=== PATIENT | male | born 1960 | race Two or more races ===

== ENCOUNTER 2016-12-16 18:32 | Emergency (ER) | payer OTHER ==
[2016-12-16 18:39] VITALS: O2SAT 94
[2016-12-16] MEDS ORDERED: TDAP ADULT 0.5 ML INJ (BOOSTRIX) IM ONE (19:30)
--- NOTE | 2016-12-16 19:34 | EDPHY ---
H & P Stated Complaint: bit by neighbors dog on r hand and forearm Time Seen by Provider: 12/16/16 19:23 HPI/ROS: CHIEF COMPLAINT: Dog bite HISTORY OF PRESENT ILLNESS: The patient is a 56-year-old man who comes to the emergency department complaining of a dog bite to his right hand and forearm. He has 2 small puncture wounds to his hand into to the forearm. He denies other injuries. He has normal range of motion and sensation. Normal pulses and capillary refill. REVIEW OF SYSTEMS: Constitutional: denies: chills, fever, recent illness, recent injury EENTM: denies: blurred vision, double vision, nose congestion Respiratory: denies: cough, shortness of breath Cardiac: denies: chest pain, irregular heart rate, lightheadedness, palpitations Gastrointestinal/Abdominal: denies: abdominal pain, diarrhea, nausea, vomiting, blood streaked stools Genitourinary: denies: dysuria, frequency, hematuria, pain Musculoskeletal: See HPI Skin: denies: lesions, rash, jaundice, bruising Neurological: denies: headache, numbness, paresthesia, tingling, dizziness, weakness Hematologic/Lymphatic: denies: blood clots, easy bleeding, easy bruising Immunologic/allergic: denies: HIV/AIDS, transplant EXAM: GENERAL: Well-appearing, well-nourished and in no acute distress. HEAD: Atraumatic, normocephalic. EYES: Pupils equal round and reactive to light, extraocular movements intact, sclera anicteric, conjunctiva are normal. ENT: TMs normal, nares patent, oropharynx clear without exudates. Moist mucous membranes. NECK: Normal range of motion, supple without lymphadenopathy or JVD. LUNGS: Breath sounds clear to auscultation bilaterally and equal. No wheezes rales or rhonchi. HEART: Regular rate and rhythm without murmurs, rubs or gallops. ABDOMEN: Soft, nontender, normoactive bowel sounds. No guarding, no rebound. No masses appreciated. BACK: No CVA tenderness, no spinal tenderness, step-offs or deformities EXTREMITIES: See diagram NEUROLOGICAL: Cranial nerves II through XII grossly intact. Normal speech, normal gait. 5/5 strength, normal movement in all extremities, normal sensation PSYCH: Normal mood, normal affect. SKIN: Warm, dry, normal turgor, no visible rashes or lesions. Source: Patient Exam Limitations: No limitations - Personal History Current Tetanus/Diphtheria Vaccine: Yes - Medical/Surgical History Hx Asthma: No Hx Chronic Respiratory Disease: No Hx Diabetes: No Hx Cardiac Disease: No Hx Renal Disease: No Hx Cirrhosis: No Hx Alcoholism: No Hx HIV/AIDS: No Hx Splenectomy or Spleen Trauma: No Other PMH: bilat hip replacements - Family History Significant Family History: No pertinent family hx - Social History Smoking Status: Former smoker Alcohol Use: Sober Drug Use: None Constitutional: Initial Vital Signs Temperature (C) 37 C 12/16/16 18:37 Heart Rate 78 12/16/16 18:37 Respiratory Rate 17 12/16/16 18:37 Blood Pressure 113/73 12/16/16 18:37 O2 Sat (%) 94 12/16/16 18:37 O2 Delivery Mode Room Air Allergies/Adverse Reactions: No Known Allergies Allergy (Unverified 12/16/16 18:36) Home Medications: Medication Instructions Recorded Amoxicillin/Clavulanate Pot 875 mg PO BID #14 tab 12/16/16 [Augmentin 875Mg] Valproic Acid 12/16/16 ED Images - Extremities Full Arm Back Right: 1 - 2 small puncture wounds very superficial 2 - Single puncture/laceration approximately 1 cm. No foreign body. Normal range of motion and sensation distally. Normal pulses 3 - Small abrasion/puncture. Superficial Medical Decision Making ED Course/Re-evaluation: The patient has superficial wounds other than the puncture wound near his thumb. They are all cleaned and dressed with antibiotics. Tetanus vaccine updated. please for notified. The dog is up-to-date on his vaccinations. This was a neighbors PET. Patient understands and agrees with this plan. Differential Diagnosis: Partial list of the Differential diagnosis considered include but were not limited to; dog bite, foreign body, puncture wound and although unlikely based on the history and physical exam, I also considered infection, tendon injury, nerve injury, vascular injury. I discussed these differential diagnoses and the plan with the patient as well as the usual and expected course. The patient understands that the diagnosis is provisional and that in medicine we are not always correct and that further workup is often warranted. Usual and customary warnings were given. All of the patient's questions were answered. The patient was instructed to return to the emergency department should the symptoms at all worsen or return, otherwise to followup with the physician as we discussed. - Data Points Medications Given: Discontinued Medications Amoxicillin/Clavulanate Potassium (Augmentin 875mg) 875 mg PO EDNOW ONE PRN Reason: Protocol Stop: 12/16/16 19:36 Last Admin: 12/16/16 20:28 Dose: 875 mg Diphtheria/Tetanus/Acell Pertussis (Boostrix) 0.5 ml IM .ONCE ONE Stop: 12/16/16 19:31 Last Admin: 12/16/16 20:25 Dose: 0.5 ml Departure - Departure Disposition: Home, Routine, Self-Care Clinical Impression: Dog bite Qualifiers: Encounter type: initial encounter Qualified Code(s): W54.0XXA - Bitten by dog, initial encounter Condition: Fair Instructions: Animal Bite (ED) Referrals: Margret Farr [Primary Care Provider] - As per Instructions Prescriptions: Amoxicillin/Clavulanate Pot [Augmentin 875Mg] 875 mg PO BID #14 tab
[2016-12-16] MEDS ORDERED: AMOXICILLIN/CLAVULANATE POT 875/125 MG TAB PO ONE ×2 (19:35→20:27)
[2016-12-16 20:31] VITALS: BP 120/74; PULSE 80; RESP 14; TEMP 98.4
== END 2016-12-16 20:30 | disposition home or self-care (01) ==
DX: S61.451A Open bite of right hand, initial encounter (principal); S51.851A Open bite of right forearm, initial encounter; Z23 Encounter for immunization; Z87.891 Personal history of nicotine dependence; W54.0XXA Bitten by dog, initial encounter; Y92.89 Other specified places as the place of occurrence of the external cause

== ENCOUNTER 2016-12-17 22:44 | Emergency (ER) | payer OTHER ==
[2016-12-17 23:02] VITALS: O2SAT 92
[2016-12-18] MEDS ORDERED: CLINDAMYCIN 900 MG/DEXTROSE 50 ML IV ONE (00:21)
--- NOTE | 2016-12-18 00:26 | EDPHY ---
H & P Smoking Status: Former smoker Time Seen by Provider: 12/18/16 00:14 HPI/ROS: CHIEF COMPLAINT: Hand infection HISTORY OF PRESENT ILLNESS: This is a 56-year-old male patient presenting to the emergency department complaining of increase redness to dog bite. Patient was seen on 12/16/16 for dog bite, wounds were clean placed on Augmentin and tetanus given. Patient states he noticed today after taking off the initial dressing had increase in redness to right hand with some redness to right wrist , mild pain with range of motion. No fever chills nausea vomiting REVIEW OF SYSTEMS: Constitutional: No fever, no chills. Eyes: No discharge. No blurred vision ENT: No sore throat. Cardiovascular: No chest pain, no palpitations. Respiratory: No cough, no shortness of breath. Gastrointestinal: No abdominal pain, no vomiting. Genitourinary: No difficulty urinating Musculoskeletal: No back pain. Right hand pain Skin: No rashes. Redness to right hand at dog bite Neurological: No headache. (Amalia Erickson) Physical Exam: General Appearance: Alert, no distress. Eyes: Pupils equal and round no pallor or injection. ENT, Mouth: Mucous membranes moist. Respiratory: There are no retractions, lungs are clear to auscultation. Cardiovascular: Regular rate and rhythm. Gastrointestinal: Abdomen is soft and nontender, no masses, bowel sounds normal. Neurological: No focal deficits Skin: Warm and dry, no rashes. Musculoskeletal: Neck is supple nontender. Right hand redness swelling no drainage full range of motion Extremities: Right hand redness with swelling redness extending to wrist, no drainage noted. full range of motion. Psychiatric: Patient is oriented X 3, acting appropriate (Amalia Erickson) Constitutional: Initial Vital Signs Temperature (C) 36.9 C 12/17/16 23:00 Heart Rate 84 12/17/16 23:00 Respiratory Rate 16 12/17/16 23:00 Blood Pressure 127/81 H 12/17/16 23:00 O2 Sat (%) 92 12/17/16 23:00 O2 Delivery Mode Room Air Allergies/Adverse Reactions: No Known Allergies Allergy (Unverified 12/17/16 22:59) Home Medications: Medication Instructions Recorded Amoxicillin/Clavulanate Pot 875 mg PO BID #14 tab 12/16/16 [Augmentin 875Mg] Valproic Acid 12/16/16 Clindamycin HCl [Clindamycin] 300 mg PO TID #30 cap 12/18/16 Medical Decision Making ED Course/Re-evaluation: Discussed the plan of care: CBC, BMP, IV clindamycin 0115: I have also drawn a line around the area of redness so patient could monitor for any worsening infection. 0130: Discharge home---> stable, discussed discharge instructions with patient (Amalia Erickson) Differential Diagnosis: Other differential diagnosis considered but not limited to cellulitis, necrotizing fasciitis and foreign body (Amalia Erickson) Other Provider: PHYSICIAN DOCUMENTATION: The patient was evaluated and managed by the Physician Minute Clerk [employer]. My co- signature indicates that I have reviewed this chart and I agree with the findings and plan of care as documented. I am the secondary supervising physician. (Ayana Aldana) - Data Points Laboratory Results: Laboratory Results 12/18/16 00:37 12/18/16 00:37 12/18/16 12/18/16 00:37 00:37 WBC 7.58 10^3/uL 10^3/uL (3.80-9.50) RBC 5.71 10^6/uL 10^6/uL (4.40-6.38) Hgb 17.7 g/dL H g/dL (13.7-17.5) Hct 50.5 % % (40.0-51.0) MCV 88.4 fL fL (81.5-99.8) MCH 31.0 pg pg (27.9-34.1) MCHC 35.0 g/dL g/dL (32.4-36.7) RDW 13.7 % % (11.5-15.2) Plt Count 180 10^3/uL 10^3/uL (150-400) MPV 10.1 fL fL (8.7-11.7) Neut % (Auto) 51.0 % % (39.3-74.2) Lymph % (Auto) 35.0 % % (15.0-45.0) Starr % (Auto) 12.0 % % (4.5-13.0) Eos % (Auto) 1.3 % % (0.6-7.6) Baso % (Auto) 0.4 % % (0.3-1.7) Nucleat RBC Rel Count 0.0 % % (0.0-0.2) Absolute Neuts (auto) 3.87 10^3/uL 10^3/uL (1.70-6.50) Absolute Lymphs (auto) 2.65 10^3/uL 10^3/uL (1.00-3.00) Absolute Monos (auto) 0.91 10^3/uL H 10^3/uL (0.30-0.80) Absolute Eos (auto) 0.10 10^3/uL 10^3/uL (0.03-0.40) Absolute Basos (auto) 0.03 10^3/uL 10^3/uL (0.02-0.10) Absolute Nucleated RBC 0.00 10^3/uL 10^3/uL (0-0.01) Immature Gran % 0.3 % % (0.0-1.1) Immature Gran # 0.02 10^3/uL 10^3/uL (0.00-0.10) Sodium 140 mEq/L mEq/L (134-144) Potassium 4.1 mEq/L mEq/L (3.5-5.2) Chloride 105 mEq/L mEq/L (97-110) Carbon Dioxide 21 mEq/l L mEq/l (22-31) Anion Gap 14 mEq/L mEq/L (8-16) BUN 26 mg/dL H mg/dL (7-23) Creatinine 0.9 mg/dL mg/dL (0.7-1.3) Estimated GFR > 60 Glucose 94 mg/dL mg/dL (70-100) Calcium 9.9 mg/dL mg/dL (8.5-10.4) Medications Given: Discontinued Medications Clindamycin Phosphate/Dextrose (Cleocin 900 Mg (Premix)) 50 mls @ 100 mls/hr IV EDNOW ONE PRN Reason: Protocol Stop: 12/18/16 00:50 Last Admin: 12/18/16 00:30 Dose: 50 mls Departure - Departure Disposition: Home, Routine, Self-Care Clinical Impression: Cellulitis Qualifiers: Site of cellulitis: extremity Site of cellulitis of extremity: upper extremity Laterality: right Qualified Code(s): L03.113 - Cellulitis of right upper limb Dog bite Qualifiers: Encounter type: subsequent encounter Qualified Code(s): W54.0XXD - Bitten by dog, subsequent encounter Condition: Good Instructions: Cellulitis (ED) Additional Instructions: 1. Monitor for any spread of redness and swelling, fever within the next 24-48 hours if any these should occur return to the emergency department 2. Discontinue the Augmentin, start taking clindamycin as of tomorrow. Your given your initial IV dose tonight 3. Follow up with your primary care clinic at [facility] Tuesday Referrals: Margret Farr [Primary Care Provider] - As per Instructions Prescriptions: Clindamycin HCl [Clindamycin] 300 mg PO TID #30 cap
[2016-12-18 01:07] LABS: HEMOGLOBIN 17.7 g/dL (13.7-17.5); RED BLOOD CELL COUNT 5.71 10^6/uL (4.40-6.38)
[2016-12-18 01:08] LABS: % IMMATURE GRANULYOCYTES 0.3 % (0.0-1.1); ABSOLUTE IMMATURE GRANULOCYTES 0.02 10^3/uL (0.00-0.10); ADD DIFF? NO; ADD MORPH? NO; ADD SCAN? NO; ATYPICAL LYMPHOCYTE FLAG 20 (0-99); FRAGMENT RBC FLAG 0 (0-99); HEMATOCRIT 50.5 % (40.0-51.0); LEFT SHIFT FLG 0 (0-99); LIPEMIA HEMOLYSIS FLAG 90 (0-99); MEAN CELL VOLUME 88.4 fL (81.5-99.8); MEAN PLATELET VOLUME 10.1 fL (8.7-11.7); PLATELET CLUMPS FLAG 10 (0-99); PLATELET COUNT 180 10^3/uL (150-400); RED CELL DISTRIBUTION WIDTH 13.7 % (11.5-15.2)
[2016-12-18 01:17] LABS: ANION GAP 14 mEq/L (8-16); CARBON DIOXIDE 21 mEq/l (22-31); CHLORIDE 105 mEq/L (97-110); CREATININE 0.9 mg/dL (0.7-1.3); GLOMERULAR FILTRATION RATE > 60; GLUCOSE 94 mg/dL (70-100); POTASSIUM 4.1 mEq/L (3.5-5.2); SODIUM 140 mEq/L (134-144)
[2016-12-18 01:42] VITALS: BP 107/69; PULSE 67; RESP 18; TEMP 97.7
[2016-12-18 02:03] LABS: CALCIUM 9.9 mg/dL (8.5-10.4)
== END 2016-12-18 01:42 | disposition home or self-care (01) ==
DX: L03.113 Cellulitis of right upper limb (principal); Z87.891 Personal history of nicotine dependence; W54.0XXD Bitten by dog, subsequent encounter
CPT/HCPCS: 96365